=== PATIENT | male | born 1985 | race Two or more races ===

== ENCOUNTER 2023-10-13 13:33 | Emergency (ER) | payer OTHER ==
[~2023-10-13] VITALS: Ht 182.9 cm; Wt 106.8 kg
[2023-10-13] MEDS ORDERED: HYDROcodone-ACET 5/325MG TAB PO ONE (18:45)
[2023-10-13] MEDS ORDERED: ACE3T PO ×3 (18:49→19:22)
[2023-10-13] MEDS ORDERED: IBUP-1456 PO ×4 (18:49→19:22)
[2023-10-13] MEDS ORDERED: AUG875T PO ×4 (18:49→19:22)
[2023-10-13 19:20] VITALS: BP 125/68; PULSE 68; RESP 18; TEMP 98.1; O2SAT 99
== END 2023-10-13 19:46 | disposition home or self-care (01) ==
LOC: ER 13:33
DX: S01.511A Laceration without foreign body of lip, initial encounter (principal); S09.93XA Unspecified injury of face, initial encounter; W22.8XXA Striking against or struck by other objects, initial encounter; Y93.89 Activity, other specified; Y92.89 Other specified places as the place of occurrence of the external cause; Y99.8 Other external cause status